=== PATIENT | male | born 1965 | race Caucasian/White ===

== ENCOUNTER 2021-06-23 09:56 | Inpatient (IN) | payer SELFPAY ==
[2021-06-23] VITALS (27 sets, daily range): BP systolic 93–145; BP diastolic 58–94; PULSE 89–108; RESP 12–21; TEMP 36.1–36.6; O2SAT 97–100; BMI 17.7
--- NOTE | 2021-06-23 10:08 | RAD_ITS ---
STUDY: X-RAY CHEST REASON FOR EXAM: Male, 55 years old. Chest pain. TECHNIQUE: Single AP portable view of the chest. COMPARISON: None. FINDINGS: Midline piercing. Cardiac silhouette unremarkable. Pulmonary vascularity unremarkable. Aorta unremarkable. No focal patchy airspace opacities. No pleural effusions. Slightly coarse lung markings. Upper abdomen unremarkable. Osseous structures intact with mild degenerative features. No pneumothorax. RAD/Chest 1 View (Portable) IMPRESSION: No acute cardiopulmonary findings Electronically Signed: Maxi Mcwilliams DO at 10:36 EDT Tel , Service support ,
--- NOTE | 2021-06-23 10:09 | EKG12_ITS ---
Test Reason : SOB Blood Pressure : / mmHG Vent. Rate : 097 BPM Atrial Rate : 097 BPM P-R Int : 122 ms QRS Dur : 092 ms QT Int : 362 ms P-R-T Axes : -28 064 228 degrees QTc Int : 459 ms Normal sinus rhythm ST & T wave abnormality, consider inferolateral ischemia Abnormal ECG Confirmed by GREGORY JACKSON, KARISHMA ([id number]), senior editor TERE OLSON ([id number]) on 06/25/2021 9:28:14 AM Referred By: GODFREY Confirmed By:JESSE JENKINS MD
--- NOTE | 2021-06-23 10:11 | ED.VIS.DYS ---
HPI History of Present Illness Chief Complaint: Shortness of Breath Informant: patient Narrative Narrative: 55-year-old male presenting to the emergency room with shortness of breath. He tells me that 4 days ago he began to have a heaviness in his chest. He tells me that at that time he also developed hiccups. He states that today he felt like his equilibrium was off he was more short of breath. He notes a cough that is not different from his baseline. He states he has not had a cigarette for the past 4 days. He has not taken any medications for his hypertension hypercholesterolemia or his diabetes. He states at the current time he is not having any chest discomfort as the supplemental oxygen is helping him. Triage pulse ox was around 96%. He denies any current weight loss. No change in sputum. Prehospital EKG demonstrated normal sinus rhythm without concerning features of ACS. [facility] Medical History Diabetes High cholesterol Hypertension Traumatic injury of wrist Home Medications NK 06/23/21 [History Last Taken Unknown] Allergy/AdvReac Type Severity Reaction Status Date / Time No Known Allergies Allergy Verified 06/23/21 10:06 Social History (Updated 06/23/21 @ 10:[address] Prabhjot Bob DO) Smoking Status: Current every day smoker tobacco type: cigarettes substance use type: does not use ROS ROS ED Constitutional Constitutional ED: Denies chills or weight loss Eyes Eyes: Denies change in vision or diplopia ENT ENT ED: Denies ear pain, rhinorrhea or sore throat Cardiovascular Cardiovascular: Reports chest pain; Denies orthopnea, palpitations or racing heartbeat Respiratory/Chest Respiratory/Chest: Reports cough, dyspnea and dyspnea on exertion; Denies orthopnea Gastrointestinal Gastrointestinal: Denies abdominal pain, diarrhea, nausea or vomiting Genitourinary Genitourinary ED: Denies dysuria, hematuria or urinary frequency Musculoskeletal Musculoskeletal: Denies arthralgias or myalgias Integumentary Denies abscess or rash Neurologic Neurologic: Reports other Details: Lightheadedness ; Denies headache(s) or weakness Psychiatric Psychiatric: Denies anxiety, depression, suicidal ideation or suicidal thoughts Endocrine Endocrinology: Denies polydipsia, polyphagia or polyuria Allergic/Immunologic Allergic/Immunologic ED: Denies mouth swelling, tongue swelling or urticaria EXAM Physical Exam Const Vital Signs: 06/23/21 09:57 06/23/21 10:03 06/23/21 10:12 Temperature 97.8 F 97.8 F Temperature Source Temporal Temporal Pulse Rate 95 96 Respiratory Rate 21 H 21 H Respiratory Effort Normal Non-Labored Respiratory Depth Normal Respiratory Pattern Normal Blood Pressure 145/94 H 145/94 H Blood Pressure Mean 111 111 Pulse Ox 99 100 Oxygen Delivery Method Room Air Nasal Cannula Room Air Oxygen Flow Rate (L/min) 2 06/23/21 10:57 06/23/21 11:16 Temperature 97.6 F L Temperature Source Oral Pulse Rate 108 H 105 H Respiratory Rate 15 19 H Respiratory Effort Respiratory Depth Respiratory Pattern Blood Pressure 93/71 119/67 Blood Pressure Mean 78 84 Pulse Ox 99 99 Oxygen Delivery Method Nasal Cannula Nasal Cannula Oxygen Flow Rate (L/min) 1 1.5 Positive well nourished and well developed General Appearance ED: well developed HEENT Reports normocephalic, head/scalp atraumatic and moist mucous membranes Eyes PERRL and EOMs intact bilaterally Neck no lymphadenopathy, supple and no JVD Resp normal respiratory effort and clear to auscultation bilaterally Cardio regular rate, regular rhythm and no murmurs GI normal to inspection, nondistended, normoactive bowel sounds and non-tender Palpation: soft Back/Spine no CVA tenderness and normal ROM Extremity normal to inspection General Extremety ED: Negative for edema General Extremity: Negative for edema Neuro oriented x3 and CN's II-XII intact bilaterally Sensorium / Orientation: alert Motor Exam: strength 5/5 throughout Psych mental status grossly normal Mood & Affect: Negative for depressed or tearful Skin no rashes or lesions noted and no wounds MDM MDM MDM Narrative Medical decision making narrative: My interpretation of the chest x-ray is no acute process. White count returns at 16.4. CO2 on his CMP is 9 with a BUN of 43 and creatinine 1.23. Glucose 439. ABG was ordered which shows a pH of 7.177 bicarb 4.8 CO2 12.9 and PO2 of 150.9. The suggest the patient is in DKA. He received several liters of IV fluids and then an insulin drip was started. Plan is admission into the hospital. I spoke with our hospitalist and our supervisor mending. Lab Data Attestation: I reviewed the patient's lab results. Labs: Laboratory Results - last 24 hr 08/11/21 08/11/21 08/11/21 10:07 10:07 10:07 WBC 16.4 H RBC 5.26 Hgb 16.2 Hct 48.4 MCV 92.0 MCH 30.8 MCHC 33.5 RDW Std Deviation 42.6 RDW Coeff of Serge 12.6 Plt Count 380 MPV 9.7 Immature Gran % (Auto) 0.500 Neut % (Auto) 82.3 H Lymph % (Auto) 7.4 L [place] % (Auto) 9.4 Eos % (Auto) 0.1 Baso % (Auto) 0.3 Absolute Neuts (auto) 13.5 H Absolute Lymphs (auto) 1.21 Nucleated RBC % 0 Sodium 128 L Potassium 4.2 Chloride 94 L Carbon Dioxide 9.0 L* Anion Gap 25 H BUN 43 H Creatinine 1.23 Estim Creat Clear Calc 47.24 Est GFR (MDRD) Af Amer 78 Est GFR (MDRD) Non-Af 65 BUN/Creatinine Ratio 35.0 H Glucose 439 H Lactic Acid Cancelled Calcium 8.6 Total Bilirubin 0.60 AST 9 L ALT 17 Alkaline Phosphatase 101 Troponin I High Sens 3.3 Total Protein 7.2 Albumin 3.2 Globulin 4.0 Albumin/Globulin Ratio 0.8 L Acetone Level 06/23/21 06/23/21 11:09 11:35 WBC RBC Hgb Hct MCV MCH MCHC RDW Std Deviation RDW Coeff of Serge Plt Count MPV Immature Gran % (Auto) Neut % (Auto) Lymph % (Auto) [place] % (Auto) Eos % (Auto) Baso % (Auto) Absolute Neuts (auto) Absolute Lymphs (auto) Nucleated RBC % Sodium Potassium Chloride Carbon Dioxide Anion Gap BUN Creatinine Estim Creat Clear Calc Est GFR (MDRD) Af Amer Est GFR (MDRD) Non-Af BUN/Creatinine Ratio Glucose Lactic Acid 2.0 Calcium Total Bilirubin AST ALT Alkaline Phosphatase Troponin I High Sens Total Protein Albumin Globulin Albumin/Globulin Ratio Acetone Level LARGE H ABG Data ABG results: ABG 06/23/21 11:16 Specimen Type ART Sample Site L Radial pH 7.18 L* Bicarbonate Actual 4.8 L Total CO2 5 Base Excess -24 L O2 Saturation 99 ABG pCO2 12.9 L* ABG pO2 151 H Frank Test Positive O2 Delivery Device Cannula Liter Flow 3.0 Crit Call To/Read Back Yes Radiography Diagnostic Testing: Radiology Impression Chest X-Ray 06/23/21 10:08 IMPRESSION: No acute cardiopulmonary findings Electronically Signed: Maxi Mcwilliams DO at 10:36 EDT Tel , Service support , EKG Initial EKG: Attestation: I personally reviewed and interpreted this EKG as follows: Comments: Normal sinus rhythm at a rate of 97 bpm Critical Care Time Critical Care Time: Yes Critical care time (excluding procedures): 30-74 minutes ( min), Including time spent:, Discussing w/Patient &/or Family/Hospital Laboratory Technician, Discussing w/Consultants, Arranging Admission or Transfer and Performing Direct Patient Care at Bedside Discharge Plan Dx/Rx/DC Orders Clinical Impression: Diabetic ketoacidosis Disposition Disposition: Acute Care [facility]
[2021-06-23] MEDS: DiphenhydrAMINE 50 MG/ML Syringe 25 MG IV (10:16)
[2021-06-23] MEDS: ChlorproMAZINE 50 MG/2 ML Ampul 25 MG IV (10:16)
[2021-06-23 10:18] LABS: Absolute Lymphocyte Count 1.21 X10^3/uL (0.83-4.51); Absolute Neutrophil Count 13.5 X10^3/uL (2.0-7.7); Basophil# 0.05 X10^3/uL; Basophil% 0.3 % (0-1); Eosinophil# 0.01 X10^3/uL; Eosinophils% 0.1 % (0-5); Hematocrit 48.4 % (40-54); Hemoglobin 16.2 g/dL (13.0-16.5); Lymphocyte # 1.21 X10^3/ul (0.83-4.51); Lymphocyte % 7.4 % (19-41); Mean Corp Hgb Conc 33.5 g/dL (32-36); Mean Corpuscular Hgb 30.8 pg (27.0-32.0); Mean Platelet Vol. 9.7 fl (6.2-12.0); Monocyte# 1.55 X10^3/uL; Monocyte% 9.4 % (0-10); NRBC Flagged by Analyzer 0 % (0-5); Neutrophil # 13.52 X10^3/uL (2.7-7.7); Neutrophil % 82.3 % (47-70); POSITIVE DIFFERENTIAL YES; Platelet Count 380 K/mm3 (150-450); RBC Distribution Width CV 12.6 % (11.6-14.6); RBC Distribution Width SD 42.6 fl (35.1-43.9); Red Blood Count 5.26 M/mm3 (4.6-6.2); White Blood Count 16.4 K/mm3 (4.4-11.0)
[2021-06-23 10:19] LABS: Differential Indicated SCAN CRITERIA MET
[2021-06-23 10:55] LABS: ALB/GLOB Ratio 0.8 RATIO (0.9-2.4); AST(SGOT) 9 U/L (15-37); Alanine Aminotransfer ALT/SGPT 17 U/L (16-61); Albumin, Serum 3.2 g/dL (3.2-5.0); Alkaline Phosphatase 101 U/L (45-117); Anion Gap 25 (5-15); BUN 43 mg/dL (7-18); Calcium,Total 8.6 mg/dL (8.5-10.1); Chloride 94 mmol/L (98-107); Creatinine, Serum 1.23 mg/dL (0.70-1.30); EST Glomerular Filtration Rate 65 mL/min (>60); Est Glom Filt Rate - Afr Amer 78 mL/min (>60); Estimated Creatinine Clearance 47.24 ml/min; Glucose 439 mg/dL (74-106); Potassium 4.2 mmol/L (3.5-5.1); Protein, Total 7.2 g/dL (6.4-8.2); Sodium Level 128 mmol/L (136-145); Troponin-I HS 3.3 pg/mL (3.0-78.5)
--- NOTE | 2021-06-23 11:16 | CPS ---
Critical values on ABG. Dr. Bob notified of the critical values.
[2021-06-23 11:20] LABS: Allen Test Positive; Base Excess -24 mmol/L (-2 to +2); Bicarbonate 4.8 mmol/L (22-26); Blood Gas Specimen Type ART; O2 Delivery Device Cannula; PO2 151 mmHG (75-100); SITE L Radial; SO2 99 % (95-99); Total Carbon Dioxide 5 mmol/L; pCO2 12.9 mmHg (35-45); pH 7.18 (7.35-7.45)
[2021-06-23] MEDS: 0.9% Normal Saline 1,000 ML 1000 ML IV ×2 (11:39→12:09)
[2021-06-23 12:56] LABS: Bedside Glucose 426 mg/dL (70-110)
[2021-06-23] MEDS: 0.9% Normal Saline 1,000 ML 250 ML IV (13:40)
[2021-06-23 13:56] LABS: Anion Gap 22 (5-15); BUN 42 mg/dL (7-18); BUN/Creat Ratio 42.9 RATIO (10-20); Calcium,Total 7.5 mg/dL (8.5-10.1); Chloride 102 mmol/L (98-107); Creatinine, Serum 0.98 mg/dL (0.70-1.30); EST Glomerular Filtration Rate 84 mL/min (>60); Est Glom Filt Rate - Afr Amer 102 mL/min (>60); Estimated Creatinine Clearance 61.19 ml/min; Glucose 399 mg/dL (74-106); Potassium 4.4 mmol/L (3.5-5.1); Sodium Level 131 mmol/L (136-145)
--- NOTE | 2021-06-23 15:04 | PCM.HP.STD ---
HPI - General General Date of Admission: 06/23/21 HPI Narrative MARY ANNE ELENA, is a 55 M who presented to the emergency department [facility] on 06/23/2021 with a chief complaint of shortness of breath. Patient reports that this has been ongoing for approximately the last 4 days and he presented because he began of chest heaviness. He denies any fever or chills but does complain of cough which is chronic and has not changed. He reports he has been unable to smoke in the last 4 days secondary to his shortness of breath. The patient has documented history of hypertension, hyperlipidemia, and diabetes but reports he is not been taking any of his medications for approximately 1 year now. He states he does not follow-up with a physician regularly. In the emergency department he was afebrile but had tachycardia with heart rates in the low 100s, he was normotensive but tachypneic, his oxygen saturations were 99 to 100% on room air. His CBC shows a mild leukocytosis with a white count of 16.4. An ABG was obtained and showed a pH of 7.18, bicarb of 4.8, a PCO2 of 12.9, and a PO2 of 151. His BMP showed a sodium of 128, a bicarb of 9, and anion gap of 25, and a BUN of 43. His blood glucose level was 439 and his serum ketones were positive. Given his DKA he was started on IV fluids and an insulin drip in the emergency department will be admitted to the intensive care unit for further care. [facility] Medical History Diabetes High cholesterol Hypertension Traumatic injury of wrist Home Medications NK 06/23/21 [History Last Taken Unknown] Allergy/AdvReac Type Severity Reaction Status Date / Time No Known Allergies Allergy Verified 06/23/21 10:06 Social History (Updated 06/23/21 @ 10:[address] Prabhjot Bob DO) Smoking Status: Current every day smoker tobacco type: cigarettes substance use type: does not use ROS Constitutional Constitutional: Reports anorexia, change in weight, fatigue and weakness; Denies chills, fever(s), malaise, night sweats or other Eyes Eyes: Reports blurry vision; Denies change in eye color, change in vision, discharge from eye(s), double vision, erythema, eye pain, loss of vision or other ENT HEENT: Denies abnormal hearing, dysphagia, ear pain, epistaxis, headache(s), hearing loss, nasal congestion, nasal discharge, post nasal drip, sinus pressure, sore throat or other Cardiovascular Cardiovascular: Denies chest pain, claudication, dyspnea on exertion, edema, lightheadedness, orthopnea, palpitations, paroxysmal nocturnal dyspnea, rapid heart rate, syncope or other Respiratory/Chest Respiratory/Chest: Reports dyspnea, shortness of breath at rest and shortness of breath with exertion; Denies cough, excessive phlegm production, hemoptysis, productive cough, wheezing or other Gastrointestinal Gastrointestinal: Denies abdominal pain, coffee ground emesis, constipation, diarrhea, dyspepsia, hematemesis, hematochezia, loose stools, melena, nausea, vomiting or other Genitourinary Genitourinary: Denies burning urination, difficulty urinating, dysuria, hematuria, nocturia, urinary frequency, urinary hesitancy, urinary incontinence, urinary urgency or other Musculoskeletal Musculoskeletal: Denies arthralgias, back pain, joint pain, joint stiffness, joint swelling, myalgias, neck pain or other Neurologic Neurologic: Denies abnormal gait, abnormal speech, confusion, disequilibrium, dizziness, focal weakness, headache(s), numbness, paresthesias, seizure-like activity, seizures, syncope, tingling, tremor(s) or other Psychiatric Psychiatric: Denies anxiety, depression, homicidal ideation, suicidal ideation or other Endocrine Endocrinology: Reports polydipsia and polyuria; Denies change in body appearance, cold intolerance, excessive sweating, heat intolerance or other Hematologic/Lymphatic Hematologic/Lymphatic: Denies anemia, easy bleeding, easy bruising, lymphadenopathy or other Allergic/Immunologic Allergic/Immunologic: Denies rhinitis, hives, eczemia, asthma or other Vital Signs Vital Signs Vital Signs: 06/23/21 09:57 06/23/21 10:03 06/23/21 10:12 Temperature 97.8 F 97.8 F Temperature Source Temporal Temporal Pulse Rate 95 96 Respiratory Rate 21 H 21 H Respiratory Effort Normal Non-Labored Respiratory Depth Normal Respiratory Pattern Normal Blood Pressure 145/94 H 145/94 H Blood Pressure [BP] Blood Pressure Mean 111 111 Blood Pressure Mean [BP] Blood Pressure Source Blood Pressure Source [BP] Blood Pressure Position Blood Pressure Position [BP] Blood Pressure Location Blood Pressure Location [BP] Pulse Ox 99 100 Oxygen Delivery Method Room Air Nasal Cannula Room Air Oxygen Flow Rate (L/min) 2 06/23/21 10:57 06/23/21 11:16 06/23/21 12:07 Temperature 97.6 F L 97.8 F Temperature Source Oral Temporal Pulse Rate 108 H 105 H 103 H Respiratory Rate 15 19 H 17 Respiratory Effort Respiratory Depth Respiratory Pattern Blood Pressure 93/71 119/67 112/67 Blood Pressure [BP] Blood Pressure Mean 78 84 82 Blood Pressure Mean [BP] Blood Pressure Source Blood Pressure Source [BP] Blood Pressure Position Blood Pressure Position [BP] Blood Pressure Location Blood Pressure Location [BP] Pulse Ox 99 99 100 Oxygen Delivery Method Nasal Cannula Nasal Cannula Nasal Cannula Oxygen Flow Rate (L/min) 1 1.5 1.5 06/23/21 12:10 06/23/21 13:04 06/23/21 13:30 Temperature 97.8 F 97.1 F L Temperature Source Temporal Temporal Pulse Rate 103 H 102 H 104 H Respiratory Rate 17 17 18 Respiratory Effort Respiratory Depth Respiratory Pattern Blood Pressure 112/67 111/58 L 119/73 Blood Pressure [BP] Blood Pressure Mean 82 75 88 Blood Pressure Mean [BP] Blood Pressure Source Monitor Blood Pressure Source [BP] Blood Pressure Position Right Lateral Blood Pressure Position [BP] Blood Pressure Location Left Arm Blood Pressure Location [BP] Pulse Ox 100 99 100 Oxygen Delivery Method Nasal Cannula Room Air Room Air Oxygen Flow Rate (L/min) 1.5 06/23/21 13:32 06/23/21 13:45 06/23/21 14:00 Temperature Temperature Source Pulse Rate 102 H 105 H 105 H Respiratory Rate 16 15 Respiratory Effort Respiratory Depth Respiratory Pattern Blood Pressure 109/75 Blood Pressure [BP] 100/77 Blood Pressure Mean 86 Blood Pressure Mean [BP] 84 Blood Pressure Source Monitor Blood Pressure Source [BP] Monitor Blood Pressure Position Right Lateral Blood Pressure Position [BP] Left Lateral Blood Pressure Location Left Arm Blood Pressure Location [BP] Left Arm Pulse Ox 99 99 Oxygen Delivery Method Room Air Room Air Oxygen Flow Rate (L/min) 06/23/21 14:40 Temperature Temperature Source Pulse Rate Respiratory Rate Respiratory Effort Respiratory Depth Respiratory Pattern Blood Pressure Blood Pressure [BP] Blood Pressure Mean Blood Pressure Mean [BP] Blood Pressure Source Blood Pressure Source [BP] Blood Pressure Position Blood Pressure Position [BP] Blood Pressure Location Blood Pressure Location [BP] Pulse Ox 99 Oxygen Delivery Method Room Air Oxygen Flow Rate (L/min) Weight Weight: 51.4 kg Body Mass Index (BMI) 17.7 Physical Exam Const alert and oriented x3 Constitutional Narrative: Middle-aged white male who appears older than stated age, lying in bed, nontoxic-appearing General Appearance: cooperative HEENT normocephalic, head/scalp atraumatic and hearing grossly normal bilaterally HEENT Narrative: thrush Mouth: moist mucous membranes abnormal parched Eyes PERRL, EOMs intact bilaterally and conjunctivae normal Neck no lymphadenopathy, supple and no JVD Resp normal respiratory effort, no retractions and no use of accessory muscles Resp Narrative: diffusely diminished Auscultation: Negative for crackles, rales, rhonchi or wheezes Cardio regular rate, regular rhythm, S1 normal heart sound, S2 normal heart sound, no murmurs, no rub, no gallops, no clicks and no JVD GI normal to inspection, nondistended, normoactive bowel sounds, soft to palpation, non-tender and non-distended Palpation: Negative for tender, guarding or hernia Extremity no clubbing, cyanosis or edema Extremity Narrative: Decreased lean muscle mass Peripheral Pulses: Yes pulses 2+ throughout Skin no rashes or lesions noted, no wounds, no jaundice, no petechiae and no mottling Skin Narrative: Few tattoos Neuro oriented x3, CN's II-XII intact bilaterally, moves all extremities and no focal motor deficits Neuro Narrative: Generalized weakness Sensorium / Orientation: awake, alert, oriented to person, oriented to place and oriented to time Speech: speech normal Psych Psych Narrative: Affect is flat Results Lab / Micro Data Result Diagrams: 06/23/21 10:07 06/23/21 13:30 Labs: Laboratory Results - last 24 hr 06/23/21 10:07: WBC 16.4 H, RBC 5.26, Hgb 16.2, Hct 48.4, MCV 92.0, MCH 30.8, MCHC 33.5, RDW Std Deviation 42.6, RDW Coeff of Serge 12.6, Plt Count 380, MPV 9.7, Immature Gran % (Auto) 0.500, Neut % (Auto) 82.3 H, Lymph % (Auto) 7.4 L, [place] % (Auto) 9.4, Eos % (Auto) 0.1, Baso % (Auto) 0.3, Absolute Neuts (auto) 13.5 H, Absolute Lymphs (auto) 1.21, Nucleated RBC % 0 06/23/21 10:07: Sodium 128 L, Potassium 4.2, Chloride 94 L, Carbon Dioxide 9.0 L*, Anion Gap 25 H, BUN 43 H, Creatinine 1.23, Estim Creat Clear Calc 47.24, Est GFR (MDRD) Af Amer 78, Est GFR (MDRD) Non-Af 65, BUN/Creatinine Ratio 35.0 H, Glucose 439 H, Calcium 8.6, Total Bilirubin 0.60, AST 9 L, ALT 17, Alkaline Phosphatase 101, Troponin I High Sens 3.3, Total Protein 7.2, Albumin 3.2, Globulin 4.0, Albumin/Globulin Ratio 0.8 L 06/23/21 10:07: Lactic Acid Cancelled 06/23/21 11:09: Acetone Level LARGE H 06/23/21 11:35: Lactic Acid 2.0 06/23/21 12:53: POC Glucose 426 H 06/23/21 13:30: Sodium 131 L, Potassium 4.4, Chloride 102, Carbon Dioxide 7.0 L*, Anion Gap 22 H, BUN 42 H, Creatinine 0.98, Estim Creat Clear Calc 61.19, Est GFR (MDRD) Af Amer 102, Est GFR (MDRD) Non-Af 84, BUN/Creatinine Ratio 42.9 H, Glucose 399 H, Calcium 7.5 L ABG Data ABG results: ABG 06/23/21 11:16 Specimen Type ART Sample Site L Radial pH 7.18 L* Bicarbonate Actual 4.8 L Total CO2 5 Base Excess -24 L O2 Saturation 99 ABG pCO2 12.9 L* ABG pO2 151 H Frank Test Positive O2 Delivery Device Cannula Liter Flow 3.0 Crit Call To/Read Back Yes Radiology Impression Chest X-Ray 06/23/21 10:08 IMPRESSION: No acute cardiopulmonary findings Electronically Signed: Maxi Mcwilliams DO at 10:36 EDT Tel , Service support , Assessment & Plan Assessment/Plan (1) Diabetic ketoacidosis: (2) Leukocytosis: (3) ST segment changes on electrocardiogram: (4) Metabolic acidosis due to diabetes mellitus: (5) Pseudohyponatremia: PLAN: DKA 2/2 Non-compliance -IVF -Insulin ggt -Electrolyte replacement as needed -K order set initiated -Once DKA resolved we will reinitiate basal and bolus insulin dosage -N.p.o. for now -Check hemoglobin A1c DM-2 -Patient has not taken insulin for 1 year -Check hemoglobin A1c -See above Leukocytosis -Suspect reactive related to DKA and acute dehydration -Repeat CBC in a.m. Anion gap metabolic acidosis secondary to DKA -Monitor lab -Treatment of primary problem Pseudohyponatremia -Secondary to markedly elevated blood sugars -Follow lab T wave inversion in inferior and lateral leads -Patient with no coronary history -Initial troponin is negative patient is asymptomatic -We will check echocardiogram EF and wall motion -Patient is high risk for coronary events Tobacco abuse -Recommend cessation -Nicotine patch is available and patient is aware DVT prophylaxis Lovenox CODE STATUS -Full code CCT > 30' with exclusion of procedures Charges/Coding Procedures Hospitalists Procedures: 62726 Critial Care 1st Hr
[2021-06-23 15:06] LABS: Bedside Glucose 286 mg/dL (70-110)
[2021-06-23 15:06] LABS: Bedside Glucose 346 mg/dL (70-110)
[2021-06-23 15:38] LABS: Reflex Lactate? Y
[2021-06-23 16:20] LABS: Bacteria 0 SEEN /hpf (None Seen); Mucous, Urine 0 SEEN /hpf (<or=2+); Red Blood Cells-Urine 0 SEEN /hpf (0-5); Squamous Epithelial Cells - UA 0 SEEN /hpf (0-5); White Blood Cells 0 SEEN /hpf (0-5)
[2021-06-23 16:20] LABS: Bedside Glucose 296 mg/dL (70-110)
[2021-06-23 16:22] LABS: Color, Urine Yellow (Yellow); Glucose, Dipstick 1000 mg/dl (Normal); Leukocyte Esterase-Dipstick Negative /ul (Negative); Nitrite-Dipstick Negative (Negative); Occult Blood-Urine Negative /ul (Negative); Protein-Dipstick 15 mg/dl (Negative); Urine Bilirubin Dipstick Negative (Negative); Urine Clarity Clear (Clear); Urine Urobilinogen Normal (Normal)
[2021-06-23 16:23] LABS: Ketone-Dipstick 150 mg/dl (Negative)
[2021-06-23 17:02] LABS: Anion Gap 17 (5-15); BUN 38 mg/dL (7-18); BUN/Creat Ratio 45.6 RATIO (10-20); Calcium,Total 7.5 mg/dL (8.5-10.1); Chloride 107 mmol/L (98-107); Creatinine, Serum 0.83 mg/dL (0.70-1.30); EST Glomerular Filtration Rate 101 mL/min (>60); Est Glom Filt Rate - Afr Amer 122 mL/min (>60); Estimated Creatinine Clearance 72.25 ml/min; Glucose 297 mg/dL (74-106); Sodium Level 134 mmol/L (136-145)
[2021-06-23 17:11] LABS: Bedside Glucose 255 mg/dL (70-110)
[2021-06-23 17:15] LABS: Lactic Acid 0.9 mmol/L (0.4-1.9)
[2021-06-23] MEDS: 0.9% Normal Saline 1,000 ML 175 ML IV (17:36)
[2021-06-23] MEDS: Dext 5%-0.45% NS 1,000 ML 150 ML IV (18:10)
[2021-06-23 18:16] LABS: Bedside Glucose 233 mg/dL (70-110)
[2021-06-23 19:11] LABS: Bedside Glucose 272 mg/dL (70-110)
[2021-06-23 20:16] LABS: Bedside Glucose 233 mg/dL (70-110)
[2021-06-23 21:05] LABS: Bedside Glucose 218 mg/dL (70-110)
[2021-06-23 22:06] LABS: Bedside Glucose 178 mg/dL (70-110)
[2021-06-23 22:26] LABS: Anion Gap 10 (5-15); BUN 28 mg/dL (7-18); BUN/Creat Ratio 39.6 RATIO (10-20); Calcium,Total 7.6 mg/dL (8.5-10.1); Chloride 111 mmol/L (98-107); Creatinine, Serum 0.71 mg/dL (0.70-1.30); EST Glomerular Filtration Rate 122 mL/min (>60); Est Glom Filt Rate - Afr Amer 148 mL/min (>60); Estimated Creatinine Clearance 84.46 ml/min; Glucose 181 mg/dL (74-106); Potassium 3.2 mmol/L (3.5-5.1); Sodium Level 137 mmol/L (136-145)
[2021-06-23 23:11] LABS: Bedside Glucose 152 mg/dL (70-110)
[2021-06-24] VITALS (13 sets, daily range): BP systolic 101–146; BP diastolic 60–82; PULSE 61–93; RESP 16–19; TEMP 36.8–37.1; O2SAT 97–100
[2021-06-24 00:21] LABS: Bedside Glucose 124 mg/dL (70-110)
[2021-06-24] MEDS: Dext 5%-0.45% NS 1,000 ML 150 ML IV ×2 (00:44→05:24)
[2021-06-24 01:16] LABS: Bedside Glucose 91 mg/dL (70-110)
[2021-06-24 01:53] LABS: Anion Gap 7 (5-15); BUN 25 mg/dL (7-18); BUN/Creat Ratio 35.7 RATIO (10-20); Calcium,Total 7.8 mg/dL (8.5-10.1); Chloride 112 mmol/L (98-107); EST Glomerular Filtration Rate 123 mL/min (>60); Est Glom Filt Rate - Afr Amer 149 mL/min (>60); Estimated Creatinine Clearance 85.67 ml/min; Glucose 89 mg/dL (74-106); Potassium 3.6 mmol/L (3.5-5.1); Sodium Level 139 mmol/L (136-145)
[2021-06-24 02:41] LABS: Bedside Glucose 177 mg/dL (70-110)
[2021-06-24 04:07] LABS: Absolute Lymphocyte Count 1.33 X10^3/uL (0.83-4.51); Absolute Neutrophil Count 7.3 X10^3/uL (2.0-7.7); Basophil# 0.01 X10^3/uL; Basophil% 0.1 % (0-1); Eosinophil# 0.03 X10^3/uL; Eosinophils% 0.3 % (0-5); Hematocrit 30.6 % (40-54); Hemoglobin 10.9 g/dL (13.0-16.5); Lymphocyte # 1.33 X10^3/ul (0.83-4.51); Lymphocyte % 13.1 % (19-41); Mean Corp Hgb Conc 35.6 g/dL (32-36); Mean Corpuscular Hgb 31.6 pg (27.0-32.0); Mean Corpuscular Volume 88.7 fL (80-94); Mean Platelet Vol. 9.4 fl (6.2-12.0); Monocyte# 1.43 X10^3/uL; Monocyte% 14.1 % (0-10); NRBC Flagged by Analyzer 0 % (0-5); Neutrophil % 72.2 % (47-70); Platelet Count 239 K/mm3 (150-450); RBC Distribution Width CV 12.7 % (11.6-14.6); RBC Distribution Width SD 41.7 fl (35.1-43.9); Red Blood Count 3.45 M/mm3 (4.6-6.2); White Blood Count 10.1 K/mm3 (4.4-11.0)
[2021-06-24 04:22] LABS: ALB/GLOB Ratio 0.9 RATIO (0.9-2.4); AST(SGOT) 7 U/L (15-37); Alanine Aminotransfer ALT/SGPT 12 U/L (16-61); Albumin, Serum 2.2 g/dL (3.2-5.0); Alkaline Phosphatase 59 U/L (45-117); Anion Gap 7 (5-15); BUN 20 mg/dL (7-18); BUN/Creat Ratio 34.3 RATIO (10-20); Calcium,Total 7.4 mg/dL (8.5-10.1); Chloride 111 mmol/L (98-107); Cholesterol 161 mg/dL (200); Creatinine, Serum 0.58 mg/dL (0.70-1.30); EST Glomerular Filtration Rate 153 mL/min (>60); Est Glom Filt Rate - Afr Amer 185 mL/min (>60); Estimated Creatinine Clearance 103.39 ml/min; Globulin 2.4 g/dL (2.2-4.2); Glucose 211 mg/dL (74-106); High Density Lipoprotein 31 mg/dL; Magnesium 1.9 mg/dL (1.6-2.6); Potassium 3.8 mmol/L (3.5-5.1); Protein, Total 4.6 g/dL (6.4-8.2); Sodium Level 138 mmol/L (136-145); Triglycerides 122 mg/dL; Very Low Density Lipoprotein 24 mg/dL (5-40)
[2021-06-24 04:24] LABS: Hemoglobin A1c 13.5 % (3.8-5.6)
[2021-06-24 04:26] LABS: Phosphorus 0.9 mg/dL (2.5-4.9)
--- NOTE | 2021-06-24 05:55 | ECHOD_ITS ---
Reason For Study: CAD/ASHD Procedure This was a 2D Doppler, Color Flow transthoracic echocardiogram. Exam performed portable in ICU/CCU. EXAM performed in ICU, PT moved to PCU 116 AFTER EXAM. Left Ventricle Normal LV size. The estimated ejection fraction is 55 %. Normal diastology for age. No regional wall motion abnormalities noted. Right Ventricle Normal RV size. Normal systolic function. Atria Normal left atrium. Normal right atrium. No doppler evidence for ASD. Mitral Valve There is no mitral valve stenosis. No mitral valve insufficiency. Tricuspid Valve There is no tricuspid stenosis. Unable to estimate RV systolic pressure due to inadequate jet, pulmonary artery pressure probably normal. Aortic Valve Trisinus/trileaflet aortic valve. There is no aortic stenosis. No aortic valve insufficiency. Pulmonic Valve There is no pulmonic valvular stenosis. No pulmonic valve insufficiency. Great Vessels Normal aortic root. Pericardium/Pleural No pericardial effusion. MMode/2D Measurements & Calculations LVIDd: 4.3 cm IVSd: 0.74 cm Ao root diam: 3.6 cm LVIDs: 2.8 cm LVPWd: 0.76 cm RVDd: 3.1 cm FS: 34.5 % LAV(MOD-bp): 21.9 ml LA A4 area: 10.2 cm2 LA dimension(2D): 3.5 cm LAV(MOD-bp) Indexed: 13.8 ml/m2 LAV(MOD-sp2): 20.3 ml LAV(MOD-sp4): 19.9 ml RA A4 area: 8.9 cm2 Time Measurements MV dec time: 0.22 sec Doppler Measurements & Calculations MV E max beto: 90.0 cm/sec Lat Peak E' Beto: 9.0 cm/sec Med Peak E' Beto: 8.8 cm/sec MV A max beto: 94.3 cm/sec E/E' lat: 10.0 E/E' med: 10.2 MV E/A: 0.96 Ao V2 max: 148.3 cm/sec LV V1 max: 127.8 cm/sec Ao max P.8 mmHg LV V1 max P.5 mmHg ECHO/Echo Complete Interpretation Summary The estimated ejection fraction is 55 %. Normal diastology for age. Ordering Physician: Anne Gann Referring Physician: JOYCE PCP Performed By: Nell Dudley, HIMANSHU, RVT
[2021-06-24] MEDS: Insulin Lispro 100 UNIT/ML INSULN.PEN SC ×4 (09:19→22:54)
[2021-06-24] MEDS: Enoxaparin 40 MG/0.4 ML Syringe SC (09:31)
[2021-06-24 09:41] LABS: Bedside Glucose 312 mg/dL (70-110)
--- NOTE | 2021-06-24 10:40 | CASEMGMT ---
ALEKSANDR JOSE Face to Face with patient for initial transition planning/care coordination assessment. ALEKSANDR JOSE introduced self and role at [facility]. Patient sitting in chair, alert and oriented. Patient willing to participate in assessment and is able to answer all questions appropriately. Care providers, pharmacy, and demographics verified. Patient wishes to discharge home, denies need for home health at this time. Patient states he has no further needs or concerns at this time. SW updated regarding self-pay status. CM to follow for discharge planning needs that may arise. PCP: None, SW to provide list with resource Specialists: none Preferred Pharmacy: [facility] Insurance: none, SW to provide resources Prescription Benefit: none Living Will/HPOA: none LNOK:Uncle Living Arrangements: Patient lives alone in an apartment on 4th floor with elevator to enter. Patient states he is independent at home. Transportation: public transport, uncle DME/HHC: Patient denies DME at home. Denies using glucometer. ALEKSANDR JOSE updated patient on over the counter brand for glucometer and testing supplies at [facility]. SW to provided patient with resources for Medicaid application. Disposition Plan: Patient to discharge home with follow-up plans in place. Alivia BETHEA, RN, CM
[2021-06-24 10:51] LABS: Pathologist Review Reviewed
--- NOTE | 2021-06-24 11:30 | CASEMGMT ---
SW met w/pt in room, gave pt resources for self pay including [facility] assist, [facility], dental clinics, [employer], prescription assist programs, list of local PCPs, and Medicaid application. Pt states does not need food resources. Pt agreeable to complete Medicaid application. SW assisted pt in completing the application and faxed in to [employer] for pt. SW gave pt the application with the number for [employer] to follow up. SW also gave pt the number to Medicare, as pt states has been on disability for 5 years--and may qualify for Medicare. Pt states he just never looked into it, and does have someone looking into it for him. No further social service needs at this time. FANNIE Robison
[2021-06-24 11:51] LABS: Bedside Glucose 263 mg/dL (70-110)
[2021-06-24 14:19] LABS: Anion Gap 10 (5-15); BUN 11 mg/dL (7-18); BUN/Creat Ratio 26.6 RATIO (10-20); Calcium,Total 7.4 mg/dL (8.5-10.1); Chloride 106 mmol/L (98-107); Creatinine, Serum 0.41 mg/dL (0.70-1.30); EST Glomerular Filtration Rate 227 mL/min (>60); Est Glom Filt Rate - Afr Amer 274 mL/min (>60); Estimated Creatinine Clearance 152.24 ml/min; Glucose 276 mg/dL (74-106); Potassium 3.2 mmol/L (3.5-5.1); Sodium Level 137 mmol/L (136-145)
[2021-06-24 14:34] LABS: Phosphorus 2.1 mg/dL (2.5-4.9)
--- NOTE | 2021-06-24 14:47 | PN.HOSP_ITS ---
Subjective Subjective Patient states that he is feeling much better today. He tells me he is unable to afford his insulins but then on further discussion he states he is on disability for his diabetes. Per our documentation he is self-pay. I will have to discuss this further with case management to sort through what we are going to be able to get for him with regards to insulin at discharge. Objective Data Objective Data Vital Signs: Vital Signs Temp Pulse Resp BP Pulse Ox 98.4 F 86 18 146/81 H 100 06/24/21 05:00 06/24/21 12:46 06/24/21 09:33 06/24/21 09:33 06/24/21 09:33 Oxygen Flow Rate (L/min) 1.5 Oxygen Delivery Method Room Air Weight: 53.5 kg Body Mass Index (BMI) 17.7 Intake & Output: Intake and Output for Last 24 Hours 06/22/21 06/23/21 06/24/21 23:59 23:59 23:59 Intake Total 3098.10 / 3098.10 2989.71 / 2989.71 Output Total 700 / 700 1570 / 1570 Balance 2398.10 / 2398.10 1419.71 / 1419.71 Medical Nutrition Assessment Dietitian: Nutrition Therapy Diagnosis Start: 06/24/21 09:22 Freq: Status: Active Protocol: Document 06/24/21 09:59 AG (Rec: 06/24/21 09:59 AG [id number]) Nutrition Malnutrition Evidence of Malnutrition Exists Yes Malnutrition (moderate): Social/Behavioral/ Environmental Evidenced By Suboptimal Energy Intake ( Moderate),Physical Changes ( Mild) Clinical Problem Altered Nutrient-Related Laboratory Values Etiology related to reported inability to afford insulin Signs/Symptoms as evidenced by hyperglycemia upon admission, A1C 13.6% Status Active Problem Chronic Disease or Condition Related Malnutrition Etiology moderate malnutrition in context of social/ environmental circumstances related to inadequate energy intake w/ uncontrolled DM d/t reported inability to afford insulin Signs/Symptoms as evidenced by estimated PO intake meeting <75% of estimated nutritional needs >3 months; mild muscle wasting/ fat loss upon physical exam; unintentional wt loss ~42# x 5 years; BMI 18.5 Status Active Problem Recommendation Dietitian Recommendations/Changes carbohydrate controlled diet when medically indicated. Lab / Micro Data Result Diagrams: 06/24/21 03:55 06/24/21 13:30 Labs: Laboratory Results - last 24 hr 06/23/21 10:07: Diff Path Review Reviewed 06/23/21 13:59: POC Glucose 346 H 06/23/21 15:02: POC Glucose 286 H 06/23/21 15:59: POC Glucose 296 H 06/23/21 16:10: Urine Color Yellow, Urine Clarity Clear, Urine pH 5.0, Ur Specific Wellman 1.020, Urine Protein 15 H, Urine Glucose (UA) 1000 H, Urine Ketones 150 A*, Urine Occult Blood Negative, Urine Nitrite Negative, Urine Bilirubin Negative, Urine Urobilinogen Normal, Ur Leukocyte Esterase Negative, Urine RBC 0 SEEN, Urine WBC 0 SEEN, Ur Squamous Epith Cells 0 SEEN, Urine Bacter ia 0 SEEN, Urine Mucus 0 SEEN 06/23/21 16:40: Sodium 134 L, Potassium 4.0, Chloride 107, Carbon Dioxide 10.0 L , Anion Gap 17 H, BUN 38 H, Creatinine 0.83, Estim Creat Clear Calc 72.25, Est GFR (MDRD) Af Amer 122, Est GFR (MDRD) Non-Af 101, BUN/Creatinine Ratio 45.6 H, Glucose 297 H, Calcium 7.5 L 06/23/21 16:40: Lactic Acid 0.9 06/23/21 17:02: POC Glucose 255 H 06/23/21 18:04: POC Glucose 233 H 06/23/21 18:59: POC Glucose 272 H 06/23/21 20:06: POC Glucose 233 H 06/23/21 20:58: POC Glucose 218 H 06/23/21 21:07: Sodium Cancelled, Potassium Cancelled, Chloride Cancelled, Carbon Dioxide Cancelled, Anion Gap Cancelled, BUN Cancelled, Creatinine Cancelled, Estim Creat Clear Calc Cancelled, Est GFR (MDRD) Af Amer Cancelled, Est GFR (MDRD) Non-Af Cancelled, BUN/Creatinine Ratio Cancelled, Glucose Cancelled, Calcium Cancelled 06/23/21 21:55: Sodium 137, Potassium 3.2 L, Chloride 111 H, Carbon Dioxide 16.0 L, Anion Gap 10, BUN 28 H, Creatinine 0.71, Estim Creat Clear Calc 84.46, Est GFR (MDRD) Af Amer 148, Est GFR (MDRD) Non-Af 122, BUN/Creatinine Ratio 39.6 H, Glucose 181 H, Calcium 7.6 L 06/23/21 21:55: POC Glucose 178 H 06/23/21 23:05: POC Glucose 152 H 06/24/21 00:12: POC Glucose 124 H 06/24/21 01:05: Sodium 139, Potassium 3.6, Chloride 112 H, Carbon Dioxide 20.0 L , Anion Gap 7, BUN 25 H, Creatinine 0.70, Estim Creat Clear Calc 85.67, Est GFR (MDRD) Af Amer 149, Est GFR (MDRD) Non-Af 123, BUN/Creatinine Ratio 35.7 H, Glucose 89, Calcium 7.8 L 06/24/21 01:05: POC Glucose 91 06/24/21 02:33: POC Glucose 177 H 06/24/21 03:55: Sodium 138, Potassium 3.8, Chloride 111 H, Carbon Dioxide 20.0 L , Anion Gap 7, BUN 20 H, Creatinine 0.58 L, Estim Creat Clear Calc 103.39, Est GFR (MDRD) Af Amer 185, Est GFR (MDRD) Non-Af 153, BUN/Creatinine Ratio 34.3 H, Glucose 211 H, Calcium 7.4 L, Magnesium 1.9, Total Bilirubin 0.30, AST 7 L, ALT 12 L, Alkaline Phosphatase 59, Total Protein 4.6 L, Albumin 2.2 L, Globulin 2.4, Albumin/Globulin Ratio 0.9, Triglycerides 122, Cholesterol 161, LDL Cholesterol 106, VLDL Cholesterol 24, HDL Cholesterol 31 L 06/24/21 03:55: WBC 10.1, RBC 3.45 L, Hgb 10.9 L, Hct 30.6 L, MCV 88.7, MCH 31.6, MCHC 35.6 D, RDW Std Deviation 41.7, RDW Coeff of Serge 12.7, Plt Count 239, MPV 9.4, Immature Gran % (Auto) 0.200, Neut % (Auto) 72.2 H, Lymph % (Auto) 13.1 L, [place] % (Auto) 14.1 H, Eos % (Auto) 0.3, Baso % (Auto) 0.1, Absolute Neuts (auto) 7.3, Absolute Lymphs (auto) 1.33, Nucleated RBC % 0 06/24/21 03:55: Phosphorus 0.9 L* 06/24/21 03:55: Hemoglobin A1c 13.5 H 06/24/21 09:14: POC Glucose 312 H 06/24/21 11:48: POC Glucose 263 H 06/24/21 13:30: Sodium 137, Potassium 3.2 L, Chloride 106, Carbon Dioxide 21.0, Anion Gap 10, BUN 11, Creatinine 0.41 L, Estim Creat Clear Calc 152.24, Est GFR (MDRD) Af Amer 274, Est GFR (MDRD) Non-Af 227, BUN/Creatinine Ratio 26.6 H, Glucose 276 H, Calcium 7.4 L 06/24/21 13:30: Phosphorus 2.1 L Physical Exam Const alert, oriented x3 and no apparent distress Constitutional Narrative: Thin white male who appears older than stated age, lying in bed, appears much improved in the last 24 hours Exam Limitations: no limitations Nutritional Appearance: thin HEENT head/scalp atraumatic and moist oral mucous membranes; Negative for dentition normal HEENT Narrative: Mallampati 2, no thrush, fair dentition Head and Scalp: normocephalic Eyes PERRL, EOMs intact bilaterally and conjunctivae normal Neck no lymphadenopathy, supple and no JVD Resp normal respiratory effort Resp Narrative: Diffusely diminished Auscultation: wheezes; Negative for crackles Cardio regular rate, regular rhythm, S1 normal heart sound, S2 normal heart sound, no murmurs, no rub, no gallops, no clicks and no JVD GI normal to inspection, nondistended, normoactive bowel sounds, soft to palpation, non-tender and non-distended Extremity normal to inspection and no clubbing, cyanosis or edema Peripheral Pulses: Yes pulses 2+ throughout Skin no rashes or lesions noted, no wounds, skin turgor normal, no jaundice, no petechiae and no mottling Neuro oriented x3, CN's II-XII intact bilaterally, moves all extremities and no focal motor deficits Neuro Narrative: Bilateral peripheral neuropathy Sensorium / Orientation: awake and alert Speech: speech normal Psych affect normal Assessment & Plan Assessment/Plan (1) Diabetic ketoacidosis: (2) Leukocytosis: (3) ST segment changes on electrocardiogram: (4) Metabolic acidosis due to diabetes mellitus: PLAN: DKA 2/2 Non-compliance -Resolved DM-2 uncontrolled -Patient had not taken insulin for 1 year upon admission -Hemoglobin A1c is 13.5 on admission -Basal and bolus insulin was initiated -Patient has indicated that insulin is not been affordable for him and he is currently uninsured--> patient does however smoke tobacco -Discussed with case management and we can get him on our hospital plan to supply insulin x1 month -Medicaid application has been given to the patient but this will require follow through on his part -Plan for likely discharge tomorrow as long as echocardiogram is okay and we are able to obtain insulin Leukocytosis -Resolved Anion gap metabolic acidosis secondary to DKA -Resolved Pseudohyponatremia -Resolved Hypokalemia -IV replacement given -Recheck in a.m. -Check a.m. magnesium level Hypophosphatemia -Replacement given -Repeat in a.m. T wave inversion in inferior and lateral leads -Patient with no coronary history -Initial troponin is negative patient is asymptomatic -Echocardiogram is pending to assess wall motion -Patient is high risk for coronary events Tobacco abuse -Recommend cessation -Nicotine patch is available and patient is aware DVT prophylaxis Lovenox CODE STATUS -Full code Charges/Coding Visit Charges Inpatient E&M: 54336 Subs Hosp L3
[2021-06-24 17:26] LABS: Bedside Glucose 277 mg/dL (70-110)
[2021-06-24 23:00] LABS: Bedside Glucose 289 mg/dL (70-110)
[2021-06-24] MEDS: Acetaminophen 325 MG Tablet 650 MG PO (23:00)
[2021-06-25] VITALS (8 sets, daily range): BP systolic 138–142; BP diastolic 68–81; PULSE 73–88; RESP 16–18; TEMP 36.8–37.4; O2SAT 94–99
--- NOTE | 2021-06-25 06:11 | RAD_ITS ---
INDICATION: sob EXAMINATION/TECHNIQUE: X-RAY - XR Chest 1 View COMPARISON: 06/23/2021 portable upright view of the chest. FINDINGS: LINES/DEVICES: None. There are overlying cardiac monitoring wires. LUNGS: No consolidation, edema or effusion. No pneumothorax. MEDIASTINUM AND CARDIOVASCULAR STRUCTURES: Cardiac silhouette not enlarged. Central airways and mediastinal contour are unremarkable. Incomplete metallic ring projects over the upper midline chest, unchanged compared to prior exam, likely extraneous to the patient. BONES AND SOFT TISSUES: Unremarkable. RAD/Chest 1 View (Portable) IMPRESSION: No radiographic evidence of acute cardiopulmonary disease. Electronically Signed: Joseph Worthington DO at 20:11 EDT Tel , Service support ,
[2021-06-25] MEDS: Insulin Lispro 100 UNIT/ML INSULN.PEN SC ×2 (06:45→11:57)
[2021-06-25 07:05] LABS: Bedside Glucose 211 mg/dL (70-110)
[2021-06-25 08:04] LABS: Anion Gap 9 (5-15); BUN 9 mg/dL (7-18); BUN/Creat Ratio 47.6 RATIO (10-20); Calcium,Total 7.5 mg/dL (8.5-10.1); Chloride 105 mmol/L (98-107); Creatinine, Serum 0.19 mg/dL (0.70-1.30); EST Glomerular Filtration Rate 560 mL/min (>60); Est Glom Filt Rate - Afr Amer 678 mL/min (>60); Glucose 200 mg/dL (74-106); Magnesium 2.2 mg/dL (1.6-2.6); Phosphorus 1.8 mg/dL (2.5-4.9); Potassium 2.7 mmol/L (3.5-5.1); Sodium Level 137 mmol/L (136-145)
[2021-06-25] MEDS: Potassium Chloride Oral Tablet 20 MEQ 60 MEQ PO (09:39)
[2021-06-25] MEDS: 0.9% Saline Lock 10 ML Syringe IV (09:39)
--- NOTE | 2021-06-25 11:56 | PCM.DC.SUM ---
Providers Date of Admission: 06/23/21 Primary Care Physician: Fernanda Primary Care Phys Reason For Visit: DKA Diagnosis Discharge Diagnosis (1) Diabetic ketoacidosis: Status: Acute Code(s): E11.10 - Type 2 diabetes mellitus with ketoacidosis without coma (2) Leukocytosis: Status: Acute Code(s): D72.829 - Elevated white blood cell count, unspecified (3) ST segment changes on electrocardiogram: Status: Acute Code(s): R94.31 - Abnormal electrocardiogram [ECG] [EKG] (4) Metabolic acidosis due to diabetes mellitus: Status: Acute Code(s): E11.69 - Type 2 diabetes mellitus with other specified complication; E87.2 - Acidosis Medications at Discharge Home Medications NK 06/23/21 insulin glargine [Lantus Solostar U-100 Insulin] 16 unit SUBCUT QHS #15 ml 06/25/21 metformin 1,000 mg PO BID #60 tab 06/25/21 Hospital Course Operations None Procedures 2-D Echocardiogram Summary of Care Provided Minutes Spent on Discharge: 42 Hospital Course: MARY ANNE ELENA, is a 55 M who presented to the emergency department [facility] on 06/23/2021 with a chief complaint of shortness of breath. Patient reported that this had been ongoing for approximately 4 days prior to presentation and he presented because he began of chest heaviness. He denied any fever or chills but does complain of cough which is chronic and has not changed. He reports he has been unable to smoke secondary to his shortness of breath. The patient has documented history of hypertension, hyperlipidemia, and diabetes but reported he had not been taking any of his medications for approximately 1 year now. He stated he has not followed-up with a physician regularly. In the emergency department he was afebrile but had tachycardia with heart rates in the low 100s, he was normotensive but tachypneic, his oxygen saturations were 99 to 100% on room air. His CBC shows a mild leukocytosis with a white count of 16.4. An ABG was obtained and showed a pH of 7.18, bicarb of 4.8, a PCO2 of 12.9, and a PO2 of 151. His BMP showed a sodium of 128, a bicarb of 9, and anion gap of 25, and a BUN of 43. His blood glucose level was 439 and his serum ketones were positive. Given his DKA he was started on IV fluids and an insulin drip in the emergency department will be admitted to the intensive care unit for further care. His DKA resolved within 24 hours and he was placed on basal insulin with a sliding scale. After extensive discussion with the patient he indicated that affordability was an issue with insulin and that he was not willing to check his blood sugars with a glucometer regularly. His hemoglobin A1c on admission was 13.5. He was continued on Lantus and discharged with 15 units daily as well as Metformin given his type II status. He has a month free and Medicaid application was sent and is pending upon discharge. He is aware that he will have to follow-up with Medicaid to complete all the information and to start receiving Medicaid. Given his T wave inversions on his EKG at admission an echocardiogram was performed. This showed an EF of 55%, normal diastolic dysfunction and no valvular abnormalities. He was discharged with a prescription for Lantus and Metformin and instructed to [facility] and given referral for Dr. Hernandez from endocrinology. Discharge diagnoses: DKA-resolved T wave inversions/abnormal EKG DM-2 uncontrolled Leukocytosis-resolved Anion gap metabolic acidosis-resolved Hypokalemia Hypophosphatemia Tobacco abuse Nonadherence to medical therapy Physical Exam Narrative Patient states he feels much better. He denies any current breathing issues. He states he will not use a glucometer at home but he will take insulin as long as he can get it covered by insurance. We did inform him that he would get a month free and the Medicaid application is pending but he will need to follow-up with this. Const alert, oriented x3 and no apparent distress Constitutional Narrative: Thin middle-aged white male lying in bed, appears much older than stated age, no acute distress, nontoxic General Appearance: cooperative and comfortable Orientation / Consciousness: awake HEENT normocephalic, head/scalp atraumatic, hearing grossly normal bilaterally, moist oral mucous membranes and oropharynx normal Mouth: oral and palatal mucosa normal Eyes PERRL, EOMs intact bilaterally and conjunctivae normal Neck no lymphadenopathy, supple and no JVD Resp normal respiratory effort, no retractions, no use of accessory muscles and clear to auscultation bilaterally Resp Narrative: Diffusely diminished but clear Auscultation: Negative for crackles, rales, rhonchi or wheezes Cardio regular rate, regular rhythm, S1 normal heart sound, S2 normal heart sound, no murmurs, no rub, no gallops, no clicks and no JVD GI normal to inspection, nondistended, normoactive bowel sounds, soft to palpation, non-tender and non-distended; Negative for hepatosplenomegaly Extremity normal to inspection and no clubbing, cyanosis or edema Skin no rashes or lesions noted, no wounds, skin turgor normal and no jaundice Neuro oriented x3, CN's II-XII intact bilaterally, moves all extremities and no focal motor deficits Neuro Narrative: Significant bilateral lower extremity peripheral neuropathy Sensorium / Orientation: awake, alert, oriented to person, oriented to place and oriented to time Speech: speech normal Motor Exam: strength 5/5 throughout Psych affect normal Medical Records Data Medical Nutrition Assessment Dietitian: Nutrition Therapy Diagnosis Start: 06/24/21 09:22 Freq: Status: Active Protocol: Document 06/24/21 09:59 AG (Rec: 06/24/21 09:59 [id number]) Nutrition Malnutrition Evidence of Malnutrition Exists Yes Malnutrition (moderate): Social/Behavioral/ Environmental Evidenced By Suboptimal Energy Intake ( Moderate),Physical Changes ( Mild) Clinical Problem Altered Nutrient-Related Laboratory Values Etiology related to reported inability to afford insulin Signs/Symptoms as evidenced by hyperglycemia upon admission, A1C 13.6% Status Active Problem Chronic Disease or Condition Related Malnutrition Etiology moderate malnutrition in context of social/ environmental circumstances related to inadequate energy intake w/ uncontrolled DM d/t reported inability to afford insulin Signs/Symptoms as evidenced by estimated PO intake meeting <75% of estimated nutritional needs >3 months; mild muscle wasting/ fat loss upon physical exam; unintentional wt loss ~42# x 5 years; BMI 18.5 Status Active Problem Recommendation Dietitian Recommendations/Changes carbohydrate controlled diet when medically indicated. Weight / BMI Weight Weight: 52 kg Body Mass Index (BMI) 17.7 ABG / Lab / Microbiology Data Result Diagrams: 06/24/21 03:55 06/25/21 05:55 Laboratory: Laboratory Results - last 24 hr 06/24/21 13:30: Sodium 137, Potassium 3.2 L, Chloride 106, Carbon Dioxide 21.0, Anion Gap 10, BUN 11, Creatinine 0.41 L, Estim Creat Clear Calc 152.24, Est GFR (MDRD) Af Amer 274, Est GFR (MDRD) Non-Af 227, BUN/Creatinine Ratio 26.6 H, Glucose 276 H, Calcium 7.4 L 06/24/21 13:30: Phosphorus 2.1 L 06/24/21 17:03: POC Glucose 277 H 06/24/21 22:49: POC Glucose 289 H 06/25/21 05:55: Sodium 137, Potassium 2.7 L*, Chloride 105, Carbon Dioxide 23.0, Anion Gap 9, BUN 9, Creatinine 0.19 L, Estim Creat Clear Calc 319.30, Est GFR (MDRD) Af Amer 678, Est GFR (MDRD) Non-Af 560, BUN/Creatinine Ratio 47.6 H, Glucose 200 H, Calcium 7.5 L, Phosphorus 1.8 L, Magnesium 2.2 06/25/21 06:44: POC Glucose 211 H Microbiology: Microbiology 06/23/21 11:09 Blood Culture (Wb) - Anticubital Right Blood Culture - Preliminary No growth in 48 hours. 06/23/21 10:07 Blood Culture (Wb) - Anticubital Right Blood Culture - Preliminary No growth in 48 hours. Radiography Diagnostic Testing: Radiology Impression Echocardiogram 06/24/21 05:55 Interpretation Summary The estimated ejection fraction is 55 %. Normal diastology for age. Ordering Physician: Anne Gann Referring Physician: NO PCP Performed By: Nell Dudley, HIMANSHU, RVT D/C Instructions Discharge Diet: Low fat / Low cholesterol and 2000 Calorie Control Diet Meaningful Use Info Meaningful Use Diagnoses (Choose all that apply): None applicable Discharge Plan Admission Admit Date/Time: 06/23/21 11:48 Primary Reason for Your Visit: DKA Attending Provider: Anne Gann Primary Care Provider: Care Physician,No Primary Discharge Orders/Prescriptions Prescriptions: New Lantus Solostar U-100 Insulin 100 unit/mL (3 mL) Insulin Pen 16 unit subcut QHS Qty: 15 RF: 1 metformin 1,000 mg tablet 1,000 mg PO BID Qty: 60 RF: 1 No Action NK RF: 0 Referrals / Follow Up: Zaid Hernandez MD [STAFF PHYSICIAN] - Within 1 Month (Diabetes) [facility] [NON-STAFF] - In 1 Week Care Physician,No Primary [Primary Care Provider] - Disposition Disposition (needs filled in before D/C Order can be placed): Home, Self Care Charges/Coding Visit Charges Inpatient E&M: 56560 Disch Hosp
[2021-06-25] MEDS: Enoxaparin 40 MG/0.4 ML Syringe SC (11:57)
--- NOTE | 2021-06-25 12:11 | PCM.DC ---
Discharge Instructions Diet Discharge Diet: Low fat / Low cholesterol and 2000 Calorie Control Diet Follow Up Care Test Results: Test results from this visit will be discussed in further detail at your follow-up appointment, if applicable. Discharge Plan Admission Admit Date/Time: 06/23/21 11:48 Primary Reason for Your Visit: DKA Attending Provider: Anne Gann Primary Care Provider: Care Physician,No Primary Discharge Orders/Prescriptions Prescriptions: New Lantus Solostar U-100 Insulin 100 unit/mL (3 mL) Insulin Pen 16 unit subcut QHS Qty: 15 RF: 1 metformin 1,000 mg tablet 1,000 mg PO BID Qty: 60 RF: 1 No Action NK RF: 0 Referrals / Follow Up: Zaid Hernandez MD [STAFF PHYSICIAN] - Within 1 Month (Diabetes) [facility] [NON-STAFF] - In 1 Week Care Physician,No Primary [Primary Care Provider] - Disposition Disposition (needs filled in before D/C Order can be placed): Home, Self Care
--- NOTE | 2021-06-25 12:12 | CASEMGMT ---
Addendum entered by Alivia Walters 06/25/21 13:20: Call back from [facility] at [facility] and they have pt set up for appt on 06/30/21 at 1100 and pt to be there at 1030. This was placed on d/c instructions and pt updated on all, voices understanding. Pt voices no further questions/concerns/needs. Manuel BRANDON CM Addendum entered by Alivia Walters 06/25/21 12:55: Pt states his daughter will be sending him a glucometer and testing supplies as she does not need them any longer. Manuel BRANDON CM Original Note: Pt is self pay and did complete [facility] chrystal with and states will f/u. Pt has not had home meds in 'years' per pt d/t same. [facility] Rx assist program to be used for pt at this time. Form completed and tubed to [facility] retail pharmacy. Pharmacy notified. Pt is agreeable to this ALEKSANDR JOSE setting up appt at [facility] for him and states would prefer a monday d/t transportation issues. Message left with [facility] regarding same. [facility] or get one at [facility], voices understanding. Pt also encouraged to f/u on [facility] chrystal and with [facility] number, voices understanding. Pt voices no further concerns/needs with going home. Manuel BRANDON CM
[2021-06-25 12:30] LABS: Bedside Glucose 288 mg/dL (70-110)
--- NOTE | 2021-06-25 14:30 | PHA.DC.MC ---
Pharmacy Service has performed discharge medication reconciliation and counseling for this patient. 1. INSULIN GLARGINE 16UNITS SC QHS 2. METFORMIN 1000MG PO BID The patient's discharge medication list was reviewed for discrepancies and discrepancies were resolved. Home Medications insulin glargine [Lantus Solostar U-100 Insulin] 16 unit SUBCUT QHS #15 ml 06/25/21 metformin 1,000 mg PO BID #60 tab 06/25/21 pen needle,diabetic, disp unit #100 ea 06/25/21 syringe with needle [Syringe 3cc/22Gx1] #1 ea 06/25/21 The patient was counseled on the following discharge medications and changes in medications for homegoing were reviewed. The Reason for Use, instructions for use, and potential side effects were reviewed for all new medications. The patient's questions regarding all of their medications were answered. The patient was able to verbally demonstrate an understanding of their discharge medications.
== END 2021-06-25 16:02 | disposition home or self-care (01) | DRG 638 ==
LOC: ED 12:00 → ICU 12:15 → PCU 06-24 09:39
PROVIDERS: Internal Medicine; Admitting Provider Internal Medicine; Emergency Provider Emergency Medicine; Visit Provider Internal Medicine
DX: E11.10 Type 2 diabetes mellitus with ketoacidosis without coma (principal); E44.0 Moderate protein-calorie malnutrition; Z68.1 Body mass index [BMI] 19.9 or less, adult; E87.2 Acidosis; D72.829 Elevated white blood cell count, unspecified; R94.31 Abnormal electrocardiogram [ECG] [EKG]; I10 Essential (primary) hypertension; F17.210 Nicotine dependence, cigarettes, uncomplicated; E78.5 Hyperlipidemia, unspecified; Z91.19 Patient's noncompliance with other medical treatment and regimen; E87.6 Hypokalemia; E83.39 Other disorders of phosphorus metabolism; E11.42 Type 2 diabetes mellitus with diabetic polyneuropathy
CPT/HCPCS: 36415; 36600; 71045; 80048; 80053; 80061; 81001; 82009; 82803; 82962; 83036; 83605; 83735; 84100; 84484; 85025; 87040; 93005; 93306; 97802; 99251; 99285; J7030; J7050; A4216; G0463; J7799